=== PATIENT | male | born 1985 | race Caucasian/White ===

== ENCOUNTER → 2021-04-28 | Outpatient (CLI) | payer BC | LOC: KOH-I 10:45 | DX: R11.0 Nausea (principal); K76.0 Fatty (change of) liver, not elsewhere classified | CPT/HCPCS: 76700 ==

== ENCOUNTER → 2021-05-14 | Outpatient (CLI) | payer BC | LOC: SLEEP 08:56 | DX: G47.33 Obstructive sleep apnea (adult) (pediatric) (principal) | CPT/HCPCS: 95810 ==

== ENCOUNTER 2021-06-14 04:14 | Emergency (ER) | payer BC | END 2021-06-14 04:44 | disposition home or self-care (01) | LOC: ER1 04:14 | DX: T16.1XXA Foreign body in right ear, initial encounter (principal) | CPT/HCPCS: 69200; 99282 ==

== ENCOUNTER 2022-03-29 06:49 | Emergency (ER) | payer BC ==
[2022-03-29] MEDS ORDERED: PEPCID20 MG PO (08:54)
[2022-03-29] MEDS ORDERED: BENADRYL25 MG PO (08:54)
[2022-03-29] MEDS ORDERED: MEDROL DOSEPAK 24 MG PO (08:54)
== END 2022-03-29 09:03 | disposition home or self-care (01) ==
LOC: ER1 06:49
DX: L27.0 Generalized skin eruption due to drugs and medicaments taken internally (principal); T47.1X5A Adverse effect of other antacids and anti-gastric-secretion drugs, initial encounter; I10 Essential (primary) hypertension; Z88.8 Allergy status to other drugs, medicaments and biological substances
CPT/HCPCS: 96372; 99282; J2930